=== PATIENT | female | born 1960 | race African-American/Black ===

== ENCOUNTER → 2020-04-21 | Outpatient (CLI) | payer OTHER | LOC: MC.RAD 12:30 | DX: Z12.31 Encounter for screening mammogram for malignant neoplasm of breast (principal) ==

== ENCOUNTER 2020-09-16 20:29 | Emergency (ER) | payer SELFPAY ==
[~2020-09-16] VITALS: Ht 167.6 cm; Wt 68.2 kg
[2020-09-16 21:08] VITALS: BP 133/84; PULSE 66; TEMP 97.5
== END 2020-09-16 22:20 | disposition left against medical advice (07) ==
LOC: COL.ER 20:29
DX: L85.3 Xerosis cutis (principal)